=== PATIENT | female | born 1990 | race Caucasian/White ===

== ENCOUNTER 2016-06-16 12:05 | Emergency (ER) | payer OTHER, MEDICAID ==
[~2016-06-16] VITALS: Ht 160 cm; Wt 65.9 kg
[2016-06-16 12:21] VITALS: TEMP 100
[2016-06-16 12:24] VITALS: BP 114/60; PULSE 114; RESP 18; O2SAT 98
[2016-06-16] MEDS ORDERED: SODIUM CHLORIDE 0.9% FLUSH 5 ML FLUSH IVF PRN (12:30)
[2016-06-16] MEDS ORDERED: LORazepam 2 MG/ML VIAL IV PUSH ONE (12:30)
[2016-06-16] MEDS ORDERED: SODIUM CHLOR 0.9% 1000 ML INJ 1,000 ML IV ONE (12:30)
[2016-06-16 12:31] VITALS: BP 114/60; PULSE 99; RESP 18; O2SAT 100
[2016-06-16 12:54] LABS: AUTOMATED NEUTROPHIL # 7.9 TH/MM3 (1.8-7.7); BASOPHIL % 0.1 % (0.0-2.0); EOSINOPHIL # 0.1 TH/MM3 (0-0.4); EOSINOPHIL % 0.4 % (0.0-4.0); HEMATOCRIT 36.6 % (35.0-46.0); HEMO FLAGS DIFF FINAL; LYMPH % 25.5 % (9.0-44.0); MEAN CELL VOLUME 90.7 FL (80.0-100.0); MEAN CORPUSCULAR HGB CONC 33.1 % (32.0-36.0); MONO % 6.4 % (0.0-8.0); NEUT % 67.6 % (16.0-70.0); PLATELET COUNT 323 TH/MM3 (150-450); RED BLOOD COUNT 4.04 MIL/MM3 (4.00-5.30); RED CELL DISTRIBUTION WIDTH 13.2 % (11.6-17.2); WHITE BLOOD COUNT 11.7 TH/MM3 (4.0-11.0)
[2016-06-16 13:03] LABS: APTT (PATIENT) 26.9 SEC (24.3-30.1); PROTHROMBIN TIME - PATIENT 10.7 SEC (9.8-11.6)
[2016-06-16 13:10] LABS: ANION GAP 6 MEQ/L (5-15); BICARBONATE 23.6 MEQ/L (21.0-32.0); BLOOD UREA NITROGEN 11 MG/DL (7-18); CHLORIDE 111 MEQ/L (98-107); GLOMERULAR FILTRATION RATE 71 ML/MIN (>89); POTASSIUM 3.5 MEQ/L (3.5-5.1); SODIUM (NA) 141 MEQ/L (136-145)
[2016-06-16 13:13] LABS: BETA HCG QUANT LESS THAN 1 MIU/ML (0-5)
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
[2016-06-16] MEDS ORDERED: IOHEXOL 350 MG/ML 10 ML VIAL (for RAD DIAG) IV ONE (14:09)
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
[2016-06-16 14:11] VITALS: BP 114/75; PULSE 85; RESP 16; O2SAT 98
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
[2016-06-16] MEDS ORDERED: HYDR-3533 PO (14:46)
== END 2016-06-16 15:26 | disposition home or self-care (01) ==
LOC: NEPC 12:05
DX: S52.501A Unspecified fracture of the lower end of right radius, initial encounter for closed fracture (principal); V49.88XA Car occupant (driver) (passenger) injured in other specified transport accidents, initial encounter
CPT/HCPCS: 29125; 70450; 71260; 72125; 72128; 72131; 73110; 73130; 73502; 74177; 80048; 84702; 85025; 85610; 85730; 86850; 86900; 86901; 96361; 96374; 99284; J2060; J7030; Q9967